=== PATIENT | female | born 1990 | race Caucasian/White ===

== ENCOUNTER 2021-03-07 14:25 | Emergency (ER) | payer OTHER ==
[~2021-03-07 14:25] MED LIST: KEFLEX CAP 500500 MG PO; PRILOSEC OTC20 MG PO
[2021-03-07 20:02] LABS: BUN/CREATININE RATIO 11 (0-10)
[2021-03-07 21:25] LABS: HEMOGLOBIN 12.4 gm/dl (12.3-15.3); RED BLOOD COUNT 4.52 M/UL (4.00-5.10); WHITE BLOOD COUNT 8.7 K/UL (4.5-11.0)
[2021-03-30] MEDS ORDERED: COLACE100 MG PO (16:42)
[2021-03-30] MEDS ORDERED: FERROUS SULFAT325 M2 PO (16:43)
== END 2021-03-07 18:00 | disposition home or self-care (01) ==
LOC: ER1 14:25
PROVIDERS: Physician Assistant Medical
DX: N93.9 Abnormal uterine and vaginal bleeding, unspecified (principal)
CPT/HCPCS: 80053; 81001; 84703; 85025; 85610; 99284

== ENCOUNTER → 2021-04-30 | Day surgery (SDC) | payer OTHER ==
[~2021-04-30] MED LIST changes: +COLACE100 MG PO; +FERROUS SULFAT325 M2 PO
[2021-04-30 07:23] LABS: HEMOGLOBIN 11.8 gm/dl (12.3-15.3); RED BLOOD COUNT 4.4 M/UL (4.00-5.10); WHITE BLOOD COUNT 9.5 K/UL (4.5-11.0)
== END | disposition home or self-care (01) ==
LOC: OR 06:54
PROVIDERS: Obstetrics & Gynecology
DX: N92.1 Excessive and frequent menstruation with irregular cycle (principal); Z20.822 Contact with and (suspected) exposure to COVID-19; Z88.5 Allergy status to narcotic agent; Z86.16 Personal history of COVID-19; Z90.49 Acquired absence of other specified parts of digestive tract
CPT/HCPCS: 36415; 81001; 84702; 85025; J1100; J1885; J2001; J2250; J2405; J2704; J3010; J7030; J7120